=== PATIENT | male | born 1985 | race Two or more races ===

== ENCOUNTER 2023-05-23 19:32 | Emergency (ER) | payer OTHER ==
[~2023-05-23] VITALS: Ht 175.3 cm; Wt 81.8 kg
[2023-05-23 19:39] VITALS: BP 122/84; PULSE 130; RESP 24; TEMP 99; O2SAT 96
[2023-05-23 21:49] LABS: Basophils # (auto) 0.1 10 ^3/uL (0-0.2); Basophils % (auto) 0.9 % (0.0-2.0); Eosinophils # (auto) 0.1 10 ^3/uL (0-0.8); Eosinophils % (auto) 0.6 % (0.0-7.0); Hematocrit 44.6 % (41.0-53.0); Lymphocytes # (auto) 2.4 10 ^3/uL (0.4-5.4); Lymphocytes % (auto) 18.2 % (10.0-50.0); Mean Corpuscular Hemoglobin 29.6 pg (28.0-32.0); Mean Corpuscular Hgb Conc. 33.7 g/dL (32.0-36.0); Mean Corpuscular Volume 87.9 fL (80.0-100.0); Monocytes # (auto) 1.4 10 ^3/uL (0-1.3); Monocytes % (auto) 10.9 % (0.0-12.0); Neutrophils % (auto) 69.4 % (37.0-80.0); Nucleated Red Blood Cells % 0.1 %; Red Blood Cells 5.07 10^6/uL (4.5-5.90); Red Cell Distribution Width 13.7 % (11.8-14.3)
[2023-05-23 22:06] LABS: Albumin 4.1 g/dL (3.4-5.0); Calcium 9.4 mg/dL (8.5-10.1); Potassium 3.7 mmol/L (3.5-5.1)
[2023-05-23 22:09] LABS: BUN/Creatinine Ratio 17.1 (10.0-20.0); Bilirubin, Total 1.2 mg/dL (0.2-1.0); Total Protein 8.4 g/dL (6.4-8.2)
== END 2023-05-24 00:08 | disposition home or self-care (01) ==
LOC: ER 19:32 → EDBD 19:32 → ER 05-24 00:08
DX: F15.90 Other stimulant use, unspecified, uncomplicated (principal)
CPT/HCPCS: 36415; 70450; 80053; 85025